=== PATIENT | female | born 1955 | race Caucasian/White ===

== ENCOUNTER 2017-04-15 00:38 | Day surgery (SDC) | payer OTHER ==
[~2017-04-15 00:38] MED LIST: ADAL40PEN INJ; ALBU90OI61 INH; CIPR500 PO; ERGO50000 PO; FLAX PO; FLUSAL5005 IH; Flomax0.4 MG PO; GLIM4 PO; HYDACE5325 PO; HYDMOR2 PO; HYDR1TAB94 PO; INFLECTRA100 MG IV; KETO10 PO; LEVSOD150 PO; LEVSOD175 PO; LEVSOD25 PO; METO50ER PO; METTREX2.5 PO; OXYACE5T PO; Percocet 5-3251 EACH PO; Prilosec Otc20 MG PO; RXHYD5325 PO; TAMS.4ER PO; Zofran Odt4 MG SL
[2017-08-03] MEDS ORDERED: CHOL10002 (13:06)
[2017-08-03] MEDS ORDERED: Remicade100 MG (13:07)
== END 2017-04-15 10:35 | disposition home or self-care (01) ==
LOC: ATC 00:38
DX: L40.50 Arthropathic psoriasis, unspecified (principal); Z79.899 Other long term (current) drug therapy
CPT/HCPCS: 96413; 96415; J7050; Q5102-ZB

== ENCOUNTER 2017-05-18 17:54 | Emergency (ER) | payer OTHER ==
[~2017-05-18] VITALS: Ht 165.1 cm; Wt 104.3 kg
[2017-05-18] MEDS ORDERED: Tegretol200 MG PO (19:46)
[2017-05-18] MEDS ORDERED: Baclofen10 MG PO (19:46)
[2017-05-18] MEDS ORDERED: HYDR1TAB94 PO (19:46)
[2017-08-03] MEDS ORDERED: CHOL10002 (13:06)
[2017-08-03] MEDS ORDERED: Remicade100 MG (13:07)
== END 2017-05-18 20:09 | disposition home or self-care (01) ==
LOC: ER 17:54
DX: G50.0 Trigeminal neuralgia (principal); Z88.1 Allergy status to other antibiotic agents; Z79.899 Other long term (current) drug therapy; E03.9 Hypothyroidism, unspecified; I10 Essential (primary) hypertension; Z87.891 Personal history of nicotine dependence
CPT/HCPCS: 99283

== ENCOUNTER 2017-05-29 08:16 | Emergency (ER) | payer OTHER ==
[~2017-05-29] VITALS: Ht 165.1 cm; Wt 108.4 kg
[~2017-05-29 08:16] MED LIST changes: +Baclofen10 MG PO; +Tegretol200 MG PO
[2017-05-29] MEDS ORDERED: Prednisone20 MG PO (09:26)
[2017-05-29] MEDS ORDERED: BENZ100A PO (09:26)
[2017-05-29] MEDS ORDERED: Duoneb 2.5-0.5 M3 ML INH (09:29)
[2017-08-03] MEDS ORDERED: CHOL10002 (13:06)
[2017-08-03] MEDS ORDERED: Remicade100 MG (13:07)
== END 2017-05-29 09:40 | disposition home or self-care (01) ==
LOC: ER 08:16
DX: J20.9 Acute bronchitis, unspecified (principal); E03.9 Hypothyroidism, unspecified; Z88.8 Allergy status to other drugs, medicaments and biological substances; Z79.899 Other long term (current) drug therapy; Z87.891 Personal history of nicotine dependence
CPT/HCPCS: 94640; 99283

== ENCOUNTER 2017-06-06 00:06 | Day surgery (SDC) | payer OTHER ==
[~2017-06-06 00:06] MED LIST changes: +BENZ100A PO; +Duoneb 2.5-0.5 M3 ML INH; +Prednisone20 MG PO
== END 2017-06-06 10:38 | disposition home or self-care (01) ==
LOC: ATC 00:06
DX: L40.0 Psoriasis vulgaris (principal); L40.59 Other psoriatic arthropathy; J42 Unspecified chronic bronchitis; E11.9 Type 2 diabetes mellitus without complications; I10 Essential (primary) hypertension
CPT/HCPCS: 96413; 96415; J7050; Q5103

== ENCOUNTER 2017-07-22 00:14 | Day surgery (SDC) | payer OTHER ==
[2017-07-22] MEDS ORDERED: METTREX2.5 PO (09:25)
== END 2017-07-22 11:35 | disposition home or self-care (01) ==
LOC: ATC 00:14
DX: L40.50 Arthropathic psoriasis, unspecified (principal)
CPT/HCPCS: 96413; 96415; J7050; Q5102-ZB; Q5103

== ENCOUNTER 2017-08-03 | Day surgery (SDC) | END 2017-08-03 14:00 | disposition home or self-care (01) ==

== ENCOUNTER 2017-08-25 10:10 | Emergency (ER) | payer OTHER ==
[~2017-08-25] VITALS: Ht 167.6 cm; Wt 104.3 kg
[~2017-08-25 10:10] MED LIST changes: +CHOL10002; +Remicade100 MG
[2017-08-25] MEDS ORDERED: METPHE20 PO (10:27)
[2017-08-25] MEDS ORDERED: METO25 (10:27)
[2017-08-25] MEDS ORDERED: Zestril40 MG (10:27)
[2017-08-25] MEDS ORDERED: Voltaren100 GM TOP (12:47)
== END 2017-08-25 12:52 | disposition home or self-care (01) ==
LOC: ER 10:10
DX: M25.562 Pain in left knee (principal); Z88.1 Allergy status to other antibiotic agents; Z88.8 Allergy status to other drugs, medicaments and biological substances; Z79.899 Other long term (current) drug therapy; Z79.891 Long term (current) use of opiate analgesic; E03.9 Hypothyroidism, unspecified; Z87.891 Personal history of nicotine dependence
CPT/HCPCS: 85379; 93971; 99283

== ENCOUNTER 2017-09-12 00:43 | Day surgery (SDC) | payer OTHER ==
[~2017-09-12 00:43] MED LIST changes: +METO25; +METPHE20 PO; +Voltaren100 GM TOP; +Zestril40 MG
== END 2017-09-12 16:12 | disposition home or self-care (01) ==
LOC: ATC 00:43
DX: L40.0 Psoriasis vulgaris (principal); L40.59 Other psoriatic arthropathy; E11.9 Type 2 diabetes mellitus without complications; Z79.899 Other long term (current) drug therapy; Z88.1 Allergy status to other antibiotic agents; Z79.84 Long term (current) use of oral hypoglycemic drugs
CPT/HCPCS: 96413; 96415; J7050; Q5103

== ENCOUNTER 2017-10-24 00:30 | Day surgery (SDC) | payer OTHER ==
[2017-10-24] MEDS ORDERED: FOLI1 PO (13:43)
[2017-10-24] MEDS ORDERED: SODBIC650 PO (13:43)
== END 2017-10-24 15:55 | disposition home or self-care (01) ==
LOC: ATC 00:30
DX: L40.0 Psoriasis vulgaris (principal)
CPT/HCPCS: 96413; 96415; J7050; Q5103

== ENCOUNTER → 2017-10-28 | Outpatient (CLI) | payer OTHER ==
[~2017-10-28] MED LIST changes: +FOLI1 PO; +SODBIC650 PO
[2017-10-28 15:20] LABS: Protein, Urine Quantitative 51.3 mg/dL (0.0-11.9)
== END ==
LOC: LAB SHORT 07:05 → LAB 07:05
PROVIDERS: Internal Medicine
DX: N17.9 Acute kidney failure, unspecified (principal); N20.0 Calculus of kidney
CPT/HCPCS: 81050; 84156

== ENCOUNTER 2017-12-05 00:33 | Day surgery (SDC) | payer OTHER ==
[2017-12-05] MEDS ORDERED: METTREX2.5 PO (09:44)
== END 2017-12-05 11:43 | disposition home or self-care (01) ==
LOC: ATC 00:33
DX: L40.0 Psoriasis vulgaris (principal); E11.9 Type 2 diabetes mellitus without complications; I10 Essential (primary) hypertension; Z87.891 Personal history of nicotine dependence
CPT/HCPCS: 96413; 96415; J7050; Q5103

== ENCOUNTER 2018-05-12 00:44 | Day surgery (SDC) | payer BC, OTHER | END 2018-05-12 10:16 | disposition home or self-care (01) | LOC: ATC 00:44 | DX: L40.0 Psoriasis vulgaris (principal); E11.9 Type 2 diabetes mellitus without complications; I10 Essential (primary) hypertension; Z88.1 Allergy status to other antibiotic agents; Z79.4 Long term (current) use of insulin | CPT/HCPCS: 96413; 96415; J7050; Q5103 ==

== ENCOUNTER 2018-06-28 00:09 | Day surgery (SDC) | payer BC, OTHER | END 2018-06-28 11:45 | disposition home or self-care (01) | LOC: ATC 00:09 | DX: L40.0 Psoriasis vulgaris (principal); E11.9 Type 2 diabetes mellitus without complications; I10 Essential (primary) hypertension; Z87.442 Personal history of urinary calculi; Z88.8 Allergy status to other drugs, medicaments and biological substances; Z79.899 Other long term (current) drug therapy; Z79.84 Long term (current) use of oral hypoglycemic drugs | CPT/HCPCS: 96413; 96415; J7050; Q5103 ==

== ENCOUNTER → 2018-07-21 | Outpatient (CLI) | payer MEDICARE, OTHER | END | disposition home or self-care (01) | LOC: LAB SHORT 14:10 → LAB EV 14:10 | DX: R10.30 Lower abdominal pain, unspecified (principal) | CPT/HCPCS: 87077; 87086; 87186 ==

== ENCOUNTER 2018-08-09 00:20 | Day surgery (SDC) | payer BC, OTHER ==
--- NOTE | 2018-08-09 11:04 | NUR ---
Patient gave permission to place IV.
== END 2018-08-09 11:28 | disposition home or self-care (01) ==
LOC: ATC 00:20
DX: L40.0 Psoriasis vulgaris (principal); I10 Essential (primary) hypertension; E11.9 Type 2 diabetes mellitus without complications; Z87.442 Personal history of urinary calculi; Z88.1 Allergy status to other antibiotic agents; Z79.899 Other long term (current) drug therapy
CPT/HCPCS: 96413; 96415; J7050; Q5103

== ENCOUNTER 2018-09-20 00:06 | Day surgery (SDC) | payer MEDICARE, OTHER | END 2018-09-20 11:20 | disposition home or self-care (01) | LOC: ATC 00:06 | DX: L40.0 Psoriasis vulgaris (principal); E11.9 Type 2 diabetes mellitus without complications; Z88.1 Allergy status to other antibiotic agents; Z79.899 Other long term (current) drug therapy; Z79.891 Long term (current) use of opiate analgesic; Z87.891 Personal history of nicotine dependence | CPT/HCPCS: 96413; 96415; J7050; Q5103 ==

== ENCOUNTER 2018-11-08 00:19 | Day surgery (SDC) | payer MEDICARE, OTHER | END 2018-11-08 16:41 | disposition home or self-care (01) | LOC: ATC 00:19 | DX: L40.0 Psoriasis vulgaris (principal); E11.9 Type 2 diabetes mellitus without complications; Z83.3 Family history of diabetes mellitus | CPT/HCPCS: 96413; 96415; J7050; Q5103 ==

== ENCOUNTER 2018-12-20 00:02 | Day surgery (SDC) | payer MEDICARE, OTHER | END 2018-12-20 16:58 | disposition home or self-care (01) | LOC: ATC 00:02 | DX: L40.0 Psoriasis vulgaris (principal); E11.9 Type 2 diabetes mellitus without complications; Z83.3 Family history of diabetes mellitus | CPT/HCPCS: 96413; 96415; J7050; Q5103 ==

== ENCOUNTER → 2019-01-09 | Outpatient (CLI) | payer BC, OTHER ==
[2019-01-09 10:54] LABS: BASOPHILS ABSOLUTE AUTO 0.03 K/mm3 (0.00-0.23); BASOPHILS PERCENT AUTO 0 % (0-2); EOSINOPHILS ABSOLUTE AUTO 0.09 K/mm3 (0.00-0.68); EOSINOPHILS PERCENT AUTO 1 % (0-6); Hematocrit 41.5 % (33.0-51.0); Hemoglobin 13.2 g/dL (11.5-16.0); IMMATURE GRAN ABSOLUTE AUTO 0.13 K/mm3 (0.00-0.10); IMMATURE GRAN PERCENT AUTO 1 % (0-1); LYMPHOCYTES ABSOLUTE AUTO 1.35 K/mm3 (0.84-5.20); LYMPHOCYTES PERCENT AUTO 11 % (21-46); MONOCYTES ABSOLUTE AUTO 0.16 K/mm3 (0.16-1.47); MONOCYTES PERCENT AUTO 1 % (4-13); Mean Corpuscular HGB 31.4 pg (26.0-34.0); Mean Corpuscular HGB Conc 31.8 g/dL (31.5-36.5); Mean Corpuscular Volume 99 fL (80-100); Mean Platelet Volume 9.3 fL (9.1-12.4); NEUTROPHILS ABSOLUTE AUTO 10.59 K/mm3 (1.96-9.15); NEUTROPHILS PERCENT AUTO 86 % (41-73); Platelet Count 249 K/mm3 (150-400); RDW Coefficient Variation 14.3 % (11.7-14.2); White Blood Cell Count 12.35 K/mm3 (4.00-11.30)
[2019-01-09 11:15] LABS: Albumin, Blood 3.5 g/dL (3.4-5.0); Albumin/Globulin Ratio 0.9 (0.8-1.8); Bilirubin, Total 0.3 mg/dL (0.1-1.0); Bun/Creatinine Ratio 17.9 (12.0-20.0); Calcium, Blood 8.5 mg/dL (8.5-10.1); Creatinine, Blood 1.34 mg/dL (0.40-1.00); Globulin, Blood 3.8 g/dL (2.2-4.0); Potassium, Blood 4.3 mmol/L (3.5-5.5); Total Protein, Blood 7.3 g/dL (6.4-8.2)
== END ==
LOC: LAB EV 10:50 → LAB SHORT 10:50
PROVIDERS: Emergency Medicine
DX: R06.2 Wheezing (principal)
CPT/HCPCS: 80053; 85025

== ENCOUNTER 2019-01-29 00:30 | Day surgery (SDC) | payer MEDICARE, OTHER | END 2019-01-29 16:20 | disposition home or self-care (01) | LOC: ATC 00:30 | DX: L40.0 Psoriasis vulgaris (principal); L40.50 Arthropathic psoriasis, unspecified; I12.9 Hypertensive chronic kidney disease with stage 1 through stage 4 chronic kidney disease, or unspecified chronic kidney disease; E11.22 Type 2 diabetes mellitus with diabetic chronic kidney disease; N18.9 Chronic kidney disease, unspecified; E03.9 Hypothyroidism, unspecified; E78.5 Hyperlipidemia, unspecified; F90.9 Attention-deficit hyperactivity disorder, unspecified type; Z79.51 Long term (current) use of inhaled steroids; Z79.899 Other long term (current) drug therapy; Z87.891 Personal history of nicotine dependence; Z88.1 Allergy status to other antibiotic agents; Z88.8 Allergy status to other drugs, medicaments and biological substances | CPT/HCPCS: J7050; Q5103 ==

== ENCOUNTER 2019-03-12 00:12 | Day surgery (SDC) | payer BC, OTHER | END 2019-03-12 16:05 | disposition home or self-care (01) | LOC: ATC 00:12 | DX: L40.0 Psoriasis vulgaris (principal); E11.9 Type 2 diabetes mellitus without complications; I10 Essential (primary) hypertension; Z88.1 Allergy status to other antibiotic agents; Z79.899 Other long term (current) drug therapy | CPT/HCPCS: 96413; 96415; J7050; Q5103 ==

== ENCOUNTER 2019-04-23 00:08 | Day surgery (SDC) | payer MEDICARE, OTHER | END 2019-04-23 16:44 | disposition home or self-care (01) | LOC: ATC 00:08 | DX: L40.9 Psoriasis, unspecified (principal); Z88.1 Allergy status to other antibiotic agents; Z87.891 Personal history of nicotine dependence | CPT/HCPCS: 96413; 96415; J7050; Q5103 ==

== ENCOUNTER 2019-06-04 00:38 | Day surgery (SDC) | payer MEDICARE, OTHER | END 2019-06-04 16:45 | disposition home or self-care (01) | LOC: ATC 00:38 | DX: L40.9 Psoriasis, unspecified (principal); E11.9 Type 2 diabetes mellitus without complications; I10 Essential (primary) hypertension; Z88.1 Allergy status to other antibiotic agents; Z79.899 Other long term (current) drug therapy; Z79.84 Long term (current) use of oral hypoglycemic drugs | CPT/HCPCS: J7050; Q5103 ==

== ENCOUNTER 2019-07-16 00:16 | Day surgery (SDC) | payer MEDICARE, OTHER | END 2019-07-16 16:11 | disposition home or self-care (01) | LOC: ATC 00:16 | DX: L40.50 Arthropathic psoriasis, unspecified (principal); I10 Essential (primary) hypertension; E11.9 Type 2 diabetes mellitus without complications; Z88.1 Allergy status to other antibiotic agents; Z79.84 Long term (current) use of oral hypoglycemic drugs; Z79.899 Other long term (current) drug therapy; Z87.891 Personal history of nicotine dependence | CPT/HCPCS: J7050; Q5103 ==

== ENCOUNTER → 2019-08-20 | Outpatient (CLI) | payer MEDICARE, OTHER ==
[2019-08-20 16:31] LABS: Appearance, Urine Hazy (Clear); Bilirubin, Urine 2+ (Neg); Blood, Urine 5+ (Neg); Color, Urine Yellow (P-Yellow); Glucose Qualitative, Urine Neg (Neg); Ketones, Urine Neg (Neg); Leukocyte Esterase, Urine 1+ (Neg); Nitrite, Urine Neg (Neg); Protein, Urine 2+ (Neg); Urobilinogen, Urine NORM (Normal)
[2019-08-20 16:36] LABS: Amorphous Light (0-Heavy); Bacteria Many /hpf; Mucus Light (0-Heavy); Red Blood Cells, Urine 50-100 /hpf (0-2); Squamous Epithelial Cells Mod /hpf (Few)
== END | disposition home or self-care (01) ==
LOC: LAB 14:00 → LAB SHORT 14:00
PROVIDERS: Internal Medicine
DX: R31.9 Hematuria, unspecified (principal)
CPT/HCPCS: 81001; 87077; 87086; 87186

== ENCOUNTER 2019-08-27 00:02 | Day surgery (SDC) | payer MEDICARE, OTHER | END 2019-08-27 11:00 | disposition home or self-care (01) | LOC: ATC 00:02 | DX: L40.9 Psoriasis, unspecified (principal); E11.9 Type 2 diabetes mellitus without complications; I10 Essential (primary) hypertension; Z88.1 Allergy status to other antibiotic agents; Z79.84 Long term (current) use of oral hypoglycemic drugs; Z79.899 Other long term (current) drug therapy; Z87.891 Personal history of nicotine dependence | CPT/HCPCS: 96413; 96415; J7050; Q5103 ==

== ENCOUNTER 2019-10-16 22:16 | Emergency (ER) | payer MEDICARE, OTHER ==
[~2019-10-16 22:16] MED LIST changes: +GLIP5 PO
== END 2019-10-16 23:32 | disposition left against medical advice (07) ==
LOC: ER 22:16
DX: Z53.21 Procedure and treatment not carried out due to patient leaving prior to being seen by health care provider (principal)

== ENCOUNTER 2019-11-15 00:13 | Day surgery (SDC) | payer MEDICARE, OTHER ==
[2019-11-15] MEDS ORDERED: HYDROCODONE-AC1 EAC7 PO (14:11)
[2019-11-15] MEDS ORDERED: BUPROPION XL150 M1 PO (14:12)
== END 2019-11-15 16:33 | disposition home or self-care (01) ==
LOC: ATC 00:13
DX: L40.0 Psoriasis vulgaris (principal); E11.9 Type 2 diabetes mellitus without complications; I10 Essential (primary) hypertension; Z88.1 Allergy status to other antibiotic agents; Z79.84 Long term (current) use of oral hypoglycemic drugs; Z87.891 Personal history of nicotine dependence
CPT/HCPCS: 96413; 96415; J7050; Q5103

== ENCOUNTER 2019-12-26 00:32 | Day surgery (SDC) | payer MEDICARE, OTHER ==
[~2019-12-26 00:32] MED LIST changes: +BUPROPION XL150 M1 PO; +HYDROCODONE-AC1 EAC7 PO
[2019-12-26] MEDS ORDERED: HYDCHL25 PO (13:37)
[2019-12-26] MEDS ORDERED: POTASSIUM CITRA PO (13:38)
--- NOTE | 2019-12-26 14:42 | NUR ---
TREY RN ORDERED INFLECTRA AT 1300, THIS RN CALLED PHARMACY THEY ALERTED THAT IT WOULD BE PUT IN WINDOW. PT HAS HAD INFLECTRA FOR SOMETIME, WITH NO REACTION, PT HAS ANOTHER APPOINTMENT, RATE AT [phone]
== END 2019-12-26 16:07 | disposition home or self-care (01) ==
LOC: ATC 00:32
DX: L40.50 Arthropathic psoriasis, unspecified (principal); I12.9 Hypertensive chronic kidney disease with stage 1 through stage 4 chronic kidney disease, or unspecified chronic kidney disease; E11.22 Type 2 diabetes mellitus with diabetic chronic kidney disease; N18.9 Chronic kidney disease, unspecified; E03.9 Hypothyroidism, unspecified; E78.5 Hyperlipidemia, unspecified; M81.0 Age-related osteoporosis without current pathological fracture; F90.9 Attention-deficit hyperactivity disorder, unspecified type; E55.9 Vitamin D deficiency, unspecified; Z88.1 Allergy status to other antibiotic agents; Z88.8 Allergy status to other drugs, medicaments and biological substances; Z79.84 Long term (current) use of oral hypoglycemic drugs; Z79.51 Long term (current) use of inhaled steroids; Z79.899 Other long term (current) drug therapy; Z87.891 Personal history of nicotine dependence
CPT/HCPCS: 96413; J7050; Q5103

== ENCOUNTER 2020-02-06 00:35 | Day surgery (SDC) | payer MEDICARE, OTHER ==
[~2020-02-06 00:35] MED LIST changes: +HYDCHL25 PO; +POTASSIUM CITRA PO
--- NOTE | 2020-02-06 15:58 | NUR ---
PT DID NOT SHOW UP TO [facility] FOR HER APPOINTMENT THAT WAS SCHEDULED FOR 1330 TODAY.
== END 2020-02-06 22:37 | disposition home or self-care (01) ==
LOC: ATC 00:35
DX: L40.50 Arthropathic psoriasis, unspecified (principal); I12.9 Hypertensive chronic kidney disease with stage 1 through stage 4 chronic kidney disease, or unspecified chronic kidney disease; E11.22 Type 2 diabetes mellitus with diabetic chronic kidney disease; N18.31 Chronic kidney disease, stage 3a; E03.9 Hypothyroidism, unspecified; E55.9 Vitamin D deficiency, unspecified; F90.9 Attention-deficit hyperactivity disorder, unspecified type; I25.2 Old myocardial infarction; G47.30 Sleep apnea, unspecified; E78.5 Hyperlipidemia, unspecified; Z79.899 Other long term (current) drug therapy; Z88.1 Allergy status to other antibiotic agents; Z88.8 Allergy status to other drugs, medicaments and biological substances; Z79.51 Long term (current) use of inhaled steroids; Z79.84 Long term (current) use of oral hypoglycemic drugs; Z87.891 Personal history of nicotine dependence
CPT/HCPCS: J7050; Q5103

== ENCOUNTER 2020-03-19 00:10 | Day surgery (SDC) | payer MEDICARE, OTHER | END 2020-03-19 11:20 | disposition home or self-care (01) | LOC: ATC 00:10 | DX: L40.0 Psoriasis vulgaris (principal); E11.9 Type 2 diabetes mellitus without complications; I10 Essential (primary) hypertension; Z79.899 Other long term (current) drug therapy; Z87.891 Personal history of nicotine dependence; Z71.6 Tobacco abuse counseling; Z88.1 Allergy status to other antibiotic agents; Z79.84 Long term (current) use of oral hypoglycemic drugs | CPT/HCPCS: 96413; 96415; J7050; Q5103 ==

== ENCOUNTER → 2020-04-03 | Outpatient (CLI) | payer MEDICARE, OTHER ==
[2020-04-03 17:02] LABS: Hematocrit 37.4 % (33.0-51.0); Mean Corpuscular HGB 27.2 pg (26.0-34.0); Mean Corpuscular HGB Conc 29.4 g/dL (31.5-36.5); Mean Corpuscular Volume 93 fL (80-100); Mean Platelet Volume 9.4 fL (9.1-12.4); Platelet Count 265 K/mm3 (150-400); RDW Coefficient Variation 15.9 % (11.7-14.2); RDW Standard Deviation 52.7 fL (35.1-46.3); Red Blood Cell Count 4.04 M/mm3 (3.80-5.20)
[2020-04-03 17:16] LABS: International Normalized Ratio 0.92; Prothrombin Time Results 9.9 Sec (9.7-11.5)
[2020-04-03 17:28] LABS: Alanine Aminotransfer (ALT/SGP 39 U/L (12-78); Albumin, Blood 3.4 g/dL (3.4-5.0); Albumin/Globulin Ratio 0.8 (0.8-1.8); Alk Phos 80 U/L (50-136); Anion Gap 3 mmol/L (6-16); Aspartate Aminotrans (AST/SGOT 24 U/L (12-37); Bilirubin, Total 0.3 mg/dL (0.1-1.0); Blood Urea Nitrogen 25 mg/dL (8-24); Bun/Creatinine Ratio 28.3 (12.0-20.0); CO2, Blood 27 mmol/L (21-32); Calcium, Blood 9.1 mg/dL (8.5-10.1); Chloride, Blood 112 mmol/L (98-108); Creatinine, Blood 0.88 mg/dL (0.40-1.00); Globulin, Blood 4.1 g/dL (2.2-4.0); Glomerular Filtration Rate >60 (60-); Glucose, Blood 139 mg/dL (70-99); Potassium, Blood 3.9 mmol/L (3.5-5.5); Sodium, Blood 142 mmol/L (136-145); Total Protein, Blood 7.5 g/dL (6.4-8.2)
== END | disposition home or self-care (01) ==
LOC: LAB SHORT 15:30 → LAB 15:30 → LAB FUT 03-06 14:45
PROVIDERS: Neurological Surgery
DX: N39.0 Urinary tract infection, site not specified (principal); M48.062 Spinal stenosis, lumbar region with neurogenic claudication; M47.896 Other spondylosis, lumbar region; M43.16 Spondylolisthesis, lumbar region
CPT/HCPCS: 36415; 80053; 85027; 85610; 85730

== ENCOUNTER → 2020-05-06 | Outpatient (CLI) | payer MEDICARE, OTHER | END | disposition home or self-care (01) | LOC: LAB EV 09:38 → LAB SHORT 09:38 | DX: N39.0 Urinary tract infection, site not specified (principal) | CPT/HCPCS: 87077; 87086; 87186 ==

== ENCOUNTER 2020-05-19 00:25 | Day surgery (SDC) | payer MEDICARE, OTHER | END 2020-05-19 22:58 | disposition home or self-care (01) | LOC: ATC 00:25 | DX: L40.0 Psoriasis vulgaris (principal); E11.9 Type 2 diabetes mellitus without complications; Z88.1 Allergy status to other antibiotic agents; Z79.84 Long term (current) use of oral hypoglycemic drugs; Z79.899 Other long term (current) drug therapy | CPT/HCPCS: J7050; Q5103 ==

== ENCOUNTER 2020-05-23 00:46 | Day surgery (SDC) | payer MEDICARE, OTHER ==
[~2020-05-23] VITALS: Wt 106.2 kg
== END 2020-05-23 11:25 | disposition home or self-care (01) ==
LOC: ATC 00:46
DX: L40.0 Psoriasis vulgaris (principal); E11.9 Type 2 diabetes mellitus without complications; Z88.1 Allergy status to other antibiotic agents; Z79.84 Long term (current) use of oral hypoglycemic drugs; Z79.899 Other long term (current) drug therapy
CPT/HCPCS: 96413; 96415; J7050; Q5103

== ENCOUNTER → 2020-06-23 | Outpatient (CLI) | payer MEDICARE, OTHER | END | disposition home or self-care (01) | LOC: LAB SHORT 11:08 → LAB 11:08 | DX: R35.0 Frequency of micturition (principal) | CPT/HCPCS: 87077; 87086; 87186 ==

== ENCOUNTER → 2020-07-28 | Outpatient (CLI) | payer MEDICARE, OTHER | LOC: LAB SHORT 14:45 → LAB EV 14:45 | DX: N39.0 Urinary tract infection, site not specified (principal) | CPT/HCPCS: 87077; 87086; 87186 ==

== ENCOUNTER 2020-08-18 00:07 | Day surgery (SDC) | payer MEDICARE, OTHER | END 2020-08-18 16:25 | disposition home or self-care (01) | LOC: ATC 00:07 | DX: L40.0 Psoriasis vulgaris (principal); E11.9 Type 2 diabetes mellitus without complications; Z87.891 Personal history of nicotine dependence; Z79.84 Long term (current) use of oral hypoglycemic drugs | CPT/HCPCS: 96413; 96415; J7050; Q5103 ==

== ENCOUNTER 2020-09-29 02:32 | Day surgery (SDC) | payer MEDICARE, OTHER | END 2020-09-29 11:30 | disposition home or self-care (01) | LOC: ATC 02:32 | DX: L40.0 Psoriasis vulgaris (principal); E11.9 Type 2 diabetes mellitus without complications; I10 Essential (primary) hypertension; Z88.1 Allergy status to other antibiotic agents | CPT/HCPCS: 96413; 96415; J7050; Q5103 ==

== ENCOUNTER 2020-11-12 02:07 | Day surgery (SDC) | payer MEDICARE, OTHER ==
[2020-11-12 10:00] LABS: BASOPHILS ABSOLUTE AUTO 0.04 K/mm3 (0.00-0.23); BASOPHILS PERCENT AUTO 1 % (0-2); EOSINOPHILS ABSOLUTE AUTO 0.38 K/mm3 (0.00-0.68); EOSINOPHILS PERCENT AUTO 6 % (0-6); Hematocrit 34.2 % (33.0-51.0); IMMATURE GRAN ABSOLUTE AUTO 0.03 K/mm3 (0.00-0.10); IMMATURE GRAN PERCENT AUTO 1 % (0-1); LYMPHOCYTES ABSOLUTE AUTO 1.61 K/mm3 (0.84-5.20); LYMPHOCYTES PERCENT AUTO 26 % (21-46); MONOCYTES ABSOLUTE AUTO 0.55 K/mm3 (0.16-1.47); MONOCYTES PERCENT AUTO 9 % (4-13); Mean Corpuscular HGB 24.7 pg (26.0-34.0); Mean Corpuscular HGB Conc 29.2 g/dL (31.5-36.5); Mean Corpuscular Volume 84 fL (80-100); Mean Platelet Volume 9.5 fL (9.1-12.4); NEUTROPHILS ABSOLUTE AUTO 3.55 K/mm3 (1.96-9.15); NEUTROPHILS PERCENT AUTO 58 % (41-73); Platelet Count 266 K/mm3 (150-400); RDW Coefficient Variation 20.4 % (11.7-14.2); RDW Standard Deviation 61.1 fL (35.1-46.3); Red Blood Cell Count 4.05 M/mm3 (3.80-5.20); White Blood Cell Count 6.16 K/mm3 (4.00-11.30)
[2020-11-12 10:29] LABS: Albumin, Blood 3.6 g/dL (3.4-5.0); Albumin/Globulin Ratio 0.9 (0.8-1.8); Bilirubin, Total 0.3 mg/dL (0.1-1.0); Bun/Creatinine Ratio 21.9 (12.0-20.0); Calcium, Blood 8.2 mg/dL (8.5-10.1); Creatinine, Blood 1.14 mg/dL (0.40-1.00); Globulin, Blood 4.2 g/dL (2.2-4.0); Potassium, Blood 3.7 mmol/L (3.5-5.5); Total Protein, Blood 7.8 g/dL (6.4-8.2)
== END 2020-11-12 11:37 | disposition home or self-care (01) ==
LOC: ATC 02:07
PROVIDERS: Dermatology
DX: L40.0 Psoriasis vulgaris (principal); E11.9 Type 2 diabetes mellitus without complications; Z88.1 Allergy status to other antibiotic agents
CPT/HCPCS: 80053; 85025; 96413; 96415; J7050; Q5103

== ENCOUNTER → 2020-11-20 | Outpatient (CLI) | payer MEDICARE, OTHER ==
[2020-11-20 13:59] LABS: Stool Occult Bld Immuno 1 Negative (NEGATIVE)
== END | disposition home or self-care (01) ==
LOC: LAB SHORT 07:00
PROVIDERS: Student in an Organized Health Care Education/Training Program
DX: D64.9 Anemia, unspecified (principal)
CPT/HCPCS: 82274

== ENCOUNTER 2021-02-09 01:35 | Day surgery (SDC) | payer MEDICARE, OTHER ==
[2021-02-09 14:24] LABS: BASOPHILS ABSOLUTE AUTO 0.06 K/mm3 (0.00-0.23); BASOPHILS PERCENT AUTO 1 % (0-2); EOSINOPHILS PERCENT AUTO 2 % (0-6); Hematocrit 40.9 % (33.0-51.0); Hemoglobin 12.7 g/dL (11.5-16.0); IMMATURE GRAN ABSOLUTE AUTO 0.03 K/mm3 (0.00-0.10); IMMATURE GRAN PERCENT AUTO 0 % (0-1); LYMPHOCYTES ABSOLUTE AUTO 1.87 K/mm3 (0.84-5.20); LYMPHOCYTES PERCENT AUTO 20 % (21-46); MONOCYTES ABSOLUTE AUTO 0.58 K/mm3 (0.16-1.47); MONOCYTES PERCENT AUTO 6 % (4-13); Mean Corpuscular HGB 28.3 pg (26.0-34.0); Mean Corpuscular HGB Conc 31.1 g/dL (31.5-36.5); Mean Corpuscular Volume 91 fL (80-100); Mean Platelet Volume 9.3 fL (9.1-12.4); NEUTROPHILS ABSOLUTE AUTO 6.68 K/mm3 (1.96-9.15); NEUTROPHILS PERCENT AUTO 71 % (41-73); Platelet Count 233 K/mm3 (150-400); RDW Coefficient Variation 18.7 % (11.7-14.2); RDW Standard Deviation 62.6 fL (35.1-46.3); Red Blood Cell Count 4.48 M/mm3 (3.80-5.20); White Blood Cell Count 9.42 K/mm3 (4.00-11.30)
[2021-02-09 14:44] LABS: Albumin, Blood 3.5 g/dL (3.4-5.0); Albumin/Globulin Ratio 0.8 (0.8-1.8); Bilirubin, Total 0.5 mg/dL (0.1-1.0); Bun/Creatinine Ratio 19.8 (12.0-20.0); Creatinine, Blood 1.06 mg/dL (0.40-1.00); Globulin, Blood 4.4 g/dL (2.2-4.0); Potassium, Blood 3.7 mmol/L (3.5-5.5); Total Protein, Blood 7.9 g/dL (6.4-8.2)
== END 2021-02-09 16:08 | disposition home or self-care (01) ==
LOC: ATC 01:35
PROVIDERS: Dermatology
DX: L40.0 Psoriasis vulgaris (principal); E11.9 Type 2 diabetes mellitus without complications; I10 Essential (primary) hypertension; Z79.84 Long term (current) use of oral hypoglycemic drugs; Z88.1 Allergy status to other antibiotic agents
CPT/HCPCS: 80053; 85025; J7050; Q5103

== ENCOUNTER 2021-03-12 08:37 | Day surgery (SDC) | payer OTHER ==
[~2021-03-12] VITALS: Ht 167.6 cm; Wt 101.1 kg
== END 2021-03-12 11:43 | disposition home or self-care (01) ==
LOC: ORSCSDS 08:37
PROVIDERS: Ophthalmology
PROC: 08RK3JZ Replacement of Left Lens with Synthetic Substitute, Percutaneous Approach (ICD-10-PCS; principal; 2021-03-12 10:00)
DX: H25.12 Age-related nuclear cataract, left eye (principal); I10 Essential (primary) hypertension; I25.2 Old myocardial infarction; I25.10 Atherosclerotic heart disease of native coronary artery without angina pectoris; J45.909 Unspecified asthma, uncomplicated; Z87.891 Personal history of nicotine dependence; E11.9 Type 2 diabetes mellitus without complications; E03.9 Hypothyroidism, unspecified; E66.01 Morbid (severe) obesity due to excess calories; Z68.36 Body mass index [BMI] 36.0-36.9, adult; Z79.899 Other long term (current) drug therapy
CPT/HCPCS: 82947; J2001; J2250; J3010; J3301; J7040; V2632

== ENCOUNTER 2021-03-23 02:51 | Day surgery (SDC) | payer OTHER | END 2021-03-23 15:56 | disposition home or self-care (01) | LOC: ATC 02:51 | DX: L40.0 Psoriasis vulgaris (principal) | CPT/HCPCS: J7050; Q5103 ==

== ENCOUNTER 2021-04-02 08:40 | Day surgery (SDC) | payer OTHER ==
[~2021-04-02] VITALS: Ht 167.6 cm; Wt 104.1 kg
--- NOTE | 2021-04-02 09:49 | NUR ---
04/02/21 0949 Malick Haynes CALL LIGHT WITHIN REACH. EYE DROPS AT 0939 AND PLEDGETT AT 0941
== END 2021-04-02 11:21 | disposition home or self-care (01) ==
LOC: ORSCSDS 08:40
PROVIDERS: Ophthalmology
PROC: 08RJ3JZ Replacement of Right Lens with Synthetic Substitute, Percutaneous Approach (ICD-10-PCS; principal; 2021-04-02 10:00)
DX: H25.11 Age-related nuclear cataract, right eye (principal); I25.2 Old myocardial infarction; I12.9 Hypertensive chronic kidney disease with stage 1 through stage 4 chronic kidney disease, or unspecified chronic kidney disease; E11.22 Type 2 diabetes mellitus with diabetic chronic kidney disease; N18.9 Chronic kidney disease, unspecified; I25.10 Atherosclerotic heart disease of native coronary artery without angina pectoris; E66.9 Obesity, unspecified; Z68.37 Body mass index [BMI] 37.0-37.9, adult; Z79.899 Other long term (current) drug therapy
CPT/HCPCS: 82947; J2001; J2250; J3010; J3301; J7040; V2632

== ENCOUNTER 2021-04-23 10:12 | Emergency (ER) | payer OTHER ==
[~2021-04-23] VITALS: Ht 167.6 cm; Wt 107.0 kg
[2021-04-23 10:57] LABS: BASOPHILS ABSOLUTE AUTO 0.05 K/mm3 (0.00-0.23); BASOPHILS PERCENT AUTO 1 % (0-2); EOSINOPHILS ABSOLUTE AUTO 0.28 K/mm3 (0.00-0.68); EOSINOPHILS PERCENT AUTO 4 % (0-6); Hematocrit 37.8 % (33.0-51.0); Hemoglobin 11.8 g/dL (11.5-16.0); IMMATURE GRAN ABSOLUTE AUTO 0.05 K/mm3 (0.00-0.10); IMMATURE GRAN PERCENT AUTO 1 % (0-1); LYMPHOCYTES ABSOLUTE AUTO 1.84 K/mm3 (0.84-5.20); LYMPHOCYTES PERCENT AUTO 25 % (21-46); MONOCYTES ABSOLUTE AUTO 0.57 K/mm3 (0.16-1.47); MONOCYTES PERCENT AUTO 8 % (4-13); Mean Corpuscular HGB Conc 31.2 g/dL (31.5-36.5); Mean Corpuscular Volume 93 fL (80-100); Mean Platelet Volume 9.2 fL (9.1-12.4); NEUTROPHILS ABSOLUTE AUTO 4.51 K/mm3 (1.96-9.15); NEUTROPHILS PERCENT AUTO 62 % (41-73); Platelet Count 241 K/mm3 (150-400); RDW Coefficient Variation 16.8 % (11.7-14.2); RDW Standard Deviation 56.1 fL (35.1-46.3); Red Blood Cell Count 4.07 M/mm3 (3.80-5.20)
[2021-04-23 11:14] LABS: Albumin, Blood 3.5 g/dL (3.4-5.0); Albumin/Globulin Ratio 0.8 (0.8-1.8); Bilirubin, Total 0.3 mg/dL (0.1-1.0); Bun/Creatinine Ratio 25.2 (12.0-20.0); Calcium, Blood 8.8 mg/dL (8.5-10.1); Creatinine, Blood 1.11 mg/dL (0.40-1.00); Globulin, Blood 4.3 g/dL (2.2-4.0); Potassium, Blood 4.1 mmol/L (3.5-5.5); Total Protein, Blood 7.8 g/dL (6.4-8.2)
[2021-04-23 12:36] LABS: Source, Urine Clean Catch
[2021-04-23 12:45] LABS: Appearance, Urine Clear (Clear); Bilirubin, Urine Neg (Neg); Blood, Urine 1+ (Neg); Color, Urine Yellow (P-Yellow); Glucose Qualitative, Urine Neg (Neg); Ketones, Urine Neg (Neg); Leukocyte Esterase, Urine 1+ (Neg); Nitrite, Urine Neg (Neg); Protein, Urine 2+ (Neg); Urobilinogen, Urine NORM (Normal)
[2021-04-23 13:00] LABS: Bacteria Rare /hpf; Squamous Epithelial Cells Rare /hpf (Few)
== END 2021-04-23 14:00 | disposition home or self-care (01) ==
LOC: ER 10:12
PROVIDERS: Student in an Organized Health Care Education/Training Program
DX: N20.0 Calculus of kidney (principal); E03.9 Hypothyroidism, unspecified; Z87.891 Personal history of nicotine dependence; Z79.899 Other long term (current) drug therapy
CPT/HCPCS: 74176; 80053; 81001; 85025; 87086; 96374; 96375; 99284-25; J1170; J1885; J2405

== ENCOUNTER 2021-05-05 16:42 | Emergency (ER) | payer OTHER ==
[~2021-05-05] VITALS: Ht 167.6 cm; Wt 100.7 kg
[2021-05-05 17:15] LABS: BASOPHILS ABSOLUTE AUTO 0.05 K/mm3 (0.00-0.23); BASOPHILS PERCENT AUTO 1 % (0-2); EOSINOPHILS ABSOLUTE AUTO 0.22 K/mm3 (0.00-0.68); EOSINOPHILS PERCENT AUTO 3 % (0-6); Hematocrit 36.6 % (33.0-51.0); Hemoglobin 11.2 g/dL (11.5-16.0); IMMATURE GRAN ABSOLUTE AUTO 0.03 K/mm3 (0.00-0.10); IMMATURE GRAN PERCENT AUTO 0 % (0-1); LYMPHOCYTES ABSOLUTE AUTO 1.63 K/mm3 (0.84-5.20); LYMPHOCYTES PERCENT AUTO 22 % (21-46); MONOCYTES ABSOLUTE AUTO 0.54 K/mm3 (0.16-1.47); MONOCYTES PERCENT AUTO 7 % (4-13); Mean Corpuscular HGB 28.9 pg (26.0-34.0); Mean Corpuscular HGB Conc 30.6 g/dL (31.5-36.5); Mean Corpuscular Volume 95 fL (80-100); Mean Platelet Volume 9.3 fL (9.1-12.4); NEUTROPHILS ABSOLUTE AUTO 4.97 K/mm3 (1.96-9.15); NEUTROPHILS PERCENT AUTO 67 % (41-73); Platelet Count 213 K/mm3 (150-400); RDW Coefficient Variation 17.2 % (11.7-14.2); RDW Standard Deviation 58.5 fL (35.1-46.3); Red Blood Cell Count 3.87 M/mm3 (3.80-5.20); White Blood Cell Count 7.44 K/mm3 (4.00-11.30)
[2021-05-05] MEDS ORDERED: RENFLEXIS100 M1 (17:15)
[2021-05-05] MEDS ORDERED: VICTOZA 2-0.6 MG/0.1 (17:16)
[2021-05-05 17:31] LABS: Albumin, Blood 3.4 g/dL (3.4-5.0); Albumin/Globulin Ratio 0.9 (0.8-1.8); Bilirubin, Total 0.4 mg/dL (0.1-1.0); Bun/Creatinine Ratio 19.7 (12.0-20.0); Calcium, Blood 8.4 mg/dL (8.5-10.1); Creatinine, Blood 1.88 mg/dL (0.40-1.00); Globulin, Blood 3.8 g/dL (2.2-4.0); Potassium, Blood 3.9 mmol/L (3.5-5.5); Total Protein, Blood 7.2 g/dL (6.4-8.2)
[2021-05-05 17:56] LABS: Source, Urine Clean Catch
[2021-05-05 17:59] LABS: Bilirubin, Urine Neg (Neg); Blood, Urine 5+ (Neg); Glucose Qualitative, Urine Neg (Neg); Ketones, Urine Neg (Neg); Leukocyte Esterase, Urine 3+ (Neg); Nitrite, Urine Neg (Neg); Protein, Urine 3+ (Neg); Specific Gravity, Urine 1.025 (1.003-1.022); Urobilinogen, Urine NORM (Normal)
[2021-05-05 18:04] LABS: Color, Urine Yellow (P-Yellow)
[2021-05-05 18:05] LABS: Appearance, Urine Cloudy (Clear)
[2021-05-05 18:06] LABS: Bacteria Few /hpf; Red Blood Cells, Urine 50-100 /hpf (0-2); Squamous Epithelial Cells Rare /hpf (Few)
[2021-05-05 18:07] LABS: Amorphous Light (0-Heavy)
[2021-05-05 20:37] LABS: Bun/Creatinine Ratio 19.9 (12.0-20.0); Calcium, Blood 7.7 mg/dL (8.5-10.1); Creatinine, Blood 1.76 mg/dL (0.40-1.00); Potassium, Blood 3.7 mmol/L (3.5-5.5)
[2021-05-05] MEDS ORDERED: ONDA4 PO (21:10)
== END 2021-05-05 21:10 | disposition home or self-care (01) ==
LOC: ER 16:42
PROVIDERS: Physician Assistant
DX: G89.18 Other acute postprocedural pain (principal); R10.9 Unspecified abdominal pain; E03.9 Hypothyroidism, unspecified; Z87.891 Personal history of nicotine dependence
CPT/HCPCS: 36415; 74176; 80048; 80053; 81001; 85025; 87086; 96374; 96375; 99284-25; J1885; J2270; J2405; J7030

== ENCOUNTER 2021-05-15 00:49 | Day surgery (SDC) | payer OTHER ==
[~2021-05-15] VITALS: Wt 96.4 kg
[~2021-05-15 00:49] MED LIST changes: +ONDA4 PO; +RENFLEXIS100 M1; +VICTOZA 2-0.6 MG/0.1
== END 2021-05-15 15:15 | disposition home or self-care (01) ==
LOC: ATC 00:49
DX: L40.0 Psoriasis vulgaris (principal); E11.9 Type 2 diabetes mellitus without complications; Z88.1 Allergy status to other antibiotic agents
CPT/HCPCS: J7050; Q5103

== ENCOUNTER → 2021-07-22 | Outpatient (CLI) | payer OTHER | END | disposition home or self-care (01) | LOC: LAB SHORT 07:40 | DX: N18.32 Chronic kidney disease, stage 3b (principal); N20.0 Calculus of kidney | CPT/HCPCS: 81050 ==

== ENCOUNTER 2021-08-07 03:05 | Day surgery (SDC) | payer OTHER ==
[~2021-08-07] VITALS: Wt 100.9 kg
[2021-08-07] MEDS ORDERED: EUTHYROX137 MC1 PO (13:36)
== END 2021-08-07 15:29 | disposition home or self-care (01) ==
LOC: ATC 03:05
DX: L40.0 Psoriasis vulgaris (principal)
CPT/HCPCS: J7050; Q5103

== ENCOUNTER 2021-09-18 02:29 | Day surgery (SDC) | payer OTHER ==
[~2021-09-18] VITALS: Wt 102.6 kg
[~2021-09-18 02:29] MED LIST changes: +EUTHYROX137 MC1 PO
== END 2021-09-18 15:50 | disposition home or self-care (01) ==
LOC: ATC 02:29
DX: L40.50 Arthropathic psoriasis, unspecified (principal); L40.0 Psoriasis vulgaris; E11.9 Type 2 diabetes mellitus without complications; I10 Essential (primary) hypertension; Z88.1 Allergy status to other antibiotic agents; Z79.84 Long term (current) use of oral hypoglycemic drugs
CPT/HCPCS: 96413; 96415; J7050; Q5103

== ENCOUNTER 2022-01-29 00:18 | Day surgery (SDC) | payer OTHER ==
[~2022-01-29] VITALS: Wt 102.2 kg
[2022-01-29] MEDS ORDERED: OXYC15ER PO (11:00)
== END 2022-01-29 10:32 | disposition home or self-care (01) ==
LOC: ATC 00:18
DX: L40.0 Psoriasis vulgaris (principal); E11.9 Type 2 diabetes mellitus without complications; I10 Essential (primary) hypertension; Z88.8 Allergy status to other drugs, medicaments and biological substances
CPT/HCPCS: J7050; Q5103

== ENCOUNTER 2022-04-23 00:21 | Day surgery (SDC) | payer OTHER ==
[~2022-04-23 00:21] MED LIST changes: +OXYC15ER PO
== END 2022-04-23 10:16 | disposition home or self-care (01) ==
LOC: ATC 00:21
DX: L40.0 Psoriasis vulgaris (principal)
CPT/HCPCS: J7050; Q5103

== ENCOUNTER 2022-06-04 01:42 | Day surgery (SDC) | payer OTHER | END 2022-06-04 10:32 | disposition home or self-care (01) | LOC: ATC 01:42 | DX: L40.0 Psoriasis vulgaris (principal); E11.9 Type 2 diabetes mellitus without complications; I10 Essential (primary) hypertension; Z88.8 Allergy status to other drugs, medicaments and biological substances | CPT/HCPCS: 96413; J7050; Q5103 ==

== ENCOUNTER 2022-06-28 16:47 | Emergency (ER) | payer OTHER ==
[~2022-06-28] VITALS: Ht 167.6 cm; Wt 147.4 kg
[2022-06-28 17:28] LABS: Hematocrit 37.6 % (33.0-51.0); Hemoglobin 11.4 g/dL (11.5-16.0); Mean Corpuscular HGB 25.7 pg (26.0-34.0); Mean Corpuscular HGB Conc 30.3 g/dL (31.5-36.5); Mean Corpuscular Volume 85 fL (80-100); Mean Platelet Volume 9.4 fL (9.1-12.4); Platelet Count 165 K/mm3 (150-400); RDW Coefficient Variation 17.4 % (11.7-14.2); RDW Standard Deviation 53.9 fL (35.1-46.3); Red Blood Cell Count 4.43 M/mm3 (3.80-5.20); White Blood Cell Count 23.81 K/mm3 (4.00-11.30)
[2022-06-28 17:44] LABS: Albumin, Blood 2.9 g/dL (3.4-5.0); Albumin/Globulin Ratio 0.7 (0.8-1.8); Bilirubin, Total 0.5 mg/dL (0.1-1.0); Bun/Creatinine Ratio 23.3 (12.0-20.0); Calcium, Blood 8.6 mg/dL (8.5-10.1); Creatinine, Blood 2.49 mg/dL (0.40-1.00); Globulin, Blood 4.1 g/dL (2.2-4.0); Potassium, Blood 3.4 mmol/L (3.5-5.5)
[2022-06-28 18:13] LABS: BAND PERCENT MAN 18 % (0-8); BASOPHILS ABSOLUTE MAN 0.23 K/mm3 (0.00-0.23); BASOPHILS PERCENT MAN 1 % (0-2); EOSINOPHILS ABSOLUTE MAN 0.23 K/mm3 (0.00-0.68); EOSINOPHILS PERCENT MAN 1 % (0-6); LYMPHOCYTES ABSOLUTE MAN 0.95 K/mm3 (0.84-5.20); LYMPHOCYTES PERCENT MAN 4 % (21-46); METAMYELOCYTE ABSOLUTE MAN 0.23 K/mm3 (0.00-0.00); METAMYELOCYTE PERCENT MAN 1 % (0-0); MONOCYTES ABSOLUTE MAN 0.23 K/mm3 (0.16-1.47); MONOCYTES PERCENT MAN 1 % (4-13); SEG NEUTROPHILS PERCENT MAN 74 % (41-73); TOTAL CELLS COUNTED 100
[2022-06-28 20:49] LABS: Source, Urine Clean Catch
[2022-06-28 20:55] LABS: Appearance, Urine Clear (Clear); Blood, Urine 4+ (Neg); Color, Urine Amber (P-Yellow); Glucose Qualitative, Urine 3+ (Neg); Ketones, Urine Neg (Neg); Leukocyte Esterase, Urine 3+ (Neg); Nitrite, Urine Neg (Neg); Protein, Urine 3+ (Neg); Urobilinogen, Urine NORM (Normal)
[2022-06-28 21:02] LABS: Bilirubin, Urine 2+ (Neg)
[2022-06-28 21:03] LABS: Bacteria Many /hpf; Hyaline Casts 0-2 /lpf (0-2); Squamous Epithelial Cells Mod /hpf (Few); Transitional Epithelial Cells Rare /hpf (0-Rare); White Blood Cells, Urine 50-100 /hpf (0-5)
[2022-06-28 22:19] LABS: Influenza A, PCR NEGATIVE (NEGATIVE); Influenza B, PCR NEGATIVE (NEGATIVE); Resp Syncytial Virus, PCR NEGATIVE (NEGATIVE); SARS-Cov-2 (COVID-19) PCR, MMC NEGATIVE (NEGATIVE)
[2022-06-28] MEDS ORDERED: Ritalin10 MG PO (22:43)
[2022-06-28] MEDS ORDERED: ATOR40TA PO (22:44)
[2022-06-28] MEDS ORDERED: ALLOPURINOL100 M1 PO (22:44)
[2022-06-28] MEDS ORDERED: LISINOPRIL2.5 MG PO (22:44)
[2022-06-28] MEDS ORDERED: GLIP5 PO (22:45)
[2022-06-28 23:15] VITALS: BP 94/65
== END 2022-06-28 23:18 | disposition short-term general hospital (02) ==
LOC: ER 16:47
PROVIDERS: Emergency Medicine; Student in an Organized Health Care Education/Training Program
DX: A41.9 Sepsis, unspecified organism (principal); R65.20 Severe sepsis without septic shock; N17.9 Acute kidney failure, unspecified; I10 Essential (primary) hypertension; N13.2 Hydronephrosis with renal and ureteral calculous obstruction; J44.9 Chronic obstructive pulmonary disease, unspecified; Z88.8 Allergy status to other drugs, medicaments and biological substances; Z88.1 Allergy status to other antibiotic agents; Z79.899 Other long term (current) drug therapy; E03.9 Hypothyroidism, unspecified; Z87.891 Personal history of nicotine dependence
CPT/HCPCS: 0241U; 36415; 51701; 51702; 51798; 71046; 74176; 80053; 81001; 83605; 83880; 84484; 85025; 87040; 87077; 87086; 87186; 93005; 93010; 94640; 94664; 96365-59; 96375-59; 99285-25; A9270; J1885; J2405; J2543; J7030; J7060; J7120